=== PATIENT | male | born 1950 | race African-American/Black ===

== ENCOUNTER 2017-10-07 11:53 | Emergency (ER) | payer MEDICARE, MEDICAID ==
[~2017-10-07] VITALS: Ht 188 cm; Wt 129.0 kg
[~2017-10-07 11:53] MED LIST: ASCO500C15 PO; DONE10TA43 PO; FURO40TA5 PO; GABA-531 PO; MIRT45TA4 PO; MONT10TA21 PO; MULT-1146 PO; TAMS-11 PO; VALS80TA2 PO
[2017-10-07 15:52] LABS: BASOPHILS % 0.8 % (0.0-2.0); EOSINOPHILS % 7.1 % (0.0-5.0); HEMATOCRIT. 43.7 % (42.0-52.0); HEMOGLOBIN. 14.6 g/dL (14.0-18.0); LYMPHOCYTES % 46.8 % (20.0-50.0); MEAN CORPUSCULAR HEMOGLOBIN 30.8 pg (28.0-32.0); MONOCYTES % 7.2 % (2.0-8.0); NEUTROPHILS % 38.1 % (40.0-76.0); PLATELET 244 x1000/uL (130-400); RED BLOOD CELL COUNT 4.75 mill/uL (4.7-6.1); RED CELL DISTRIBUTION WIDTH 13.8 % (11.6-14.6)
[2017-10-07 15:56] LABS: CHLORIDE 106 mEq/L (98-107); INR 1.1; PROTHROMBIN TIME 11.1 sec (9.4-11.6)
[2017-10-07 16:07] LABS: CARBON DIOXIDE 31 mEq/L (21-32); TROPONIN I < 0.02 ng/mL (0.00-0.04)
[2017-10-07 20:30] VITALS: BP 134/82
== END 2017-10-07 20:45 | disposition home or self-care (01) ==
LOC: ER 13:04
DX: J32.9 Chronic sinusitis, unspecified (principal); R60.0 Localized edema; I11.0 Hypertensive heart disease with heart failure; F03.90 Unspecified dementia, unspecified severity, without behavioral disturbance, psychotic disturbance, mood disturbance, and anxiety; J44.9 Chronic obstructive pulmonary disease, unspecified
CPT/HCPCS: 36415; 71045; 80053; 83880; 84484; 85025; 85610; 87804; 93005; 99285